=== PATIENT | female | born 1980 | race Asian ===

== ENCOUNTER 2018-03-02 15:48 | Observation (INO) | payer OTHER, BC ==
[~2018-03-02] VITALS: Ht 154.9 cm; Wt 58.0 kg
[2018-03-02] MEDS ORDERED: dicyclomine 10mg/ml 2ml ampule IM ONE (17:15)
[2018-03-02] MEDS ORDERED: normal saline 1000ML IV soln IVB ONE ×2 (17:15→19:20)
[2018-03-02] MEDS ORDERED: ondansetron/PF 4mg/2ml inj IV ONE ×2 (17:15→18:40)
[2018-03-02 17:47] LABS: BASOPHILS % (AUTO) 0 % (0-1); EOSINOPHILS % (AUTO) 0.3 % (0-6); HEMATOCRIT 42.3 % (35.0-45.0); HEMOGLOBIN 14.3 g/dl (12.0-16.0); LYMPHOCYTES # (AUTO) 0.4 X10'3 (1.1-4.8); LYMPHOCYTES % (AUTO) 5.8 % (21-51); MEAN CORPUSCULAR HGB CONC 33.9 % (33.0-36.5); MEAN CORPUSCULAR VOLUME 82.6 FL (78-98); MEAN PLATELET VOLUME 6.9 FL (7.4-10.4); MONOCYTES % (AUTO) 0.5 % (2-12); NEUTROPHILS # (AUTO) 6.6 X10'3 (1.8-7.7); NEUTROPHILS % (AUTO) 93.4 % (42-75); PLATELET COUNT 216 X10'3 (140-440); RED BLOOD COUNT 5.12 X10'6 (4.20-5.60); RED CELL DISTRIBUTION WIDTH 13.9 % (11.5-14.5); WHITE BLOOD COUNT 7.1 X10'3 (4.5-11.0)
[2018-03-02 17:48] LABS: CLARITY,URINE CLEAR (Clear); COLOR,URINE YELLOW (Yellow); GLUCOSE, URINE NEGATIVE (Neg); KETONES,URINE >=80 mg/dl (Neg); LEUKOCYTE ESTERASE ,URINE NEGATIVE (Neg); NITRITES, URINE NEGATIVE (Neg); OCCULT BLOOD,URINE LARGE (Neg); PH,URINE 5.5 (4.8-8.0); PROTEIN,URINE TRACE mg/dl (Neg); UROBILINOGEN,URINE 0.2 E.U/dL (0.2-1.0)
[2018-03-02 17:49] LABS: URINE HCG NEGATIVE (NEG)
[2018-03-02 17:55] LABS: UA COLLECTION TYPE CLN CATCH MIDSTREAM
[2018-03-02 17:56] LABS: BACTERIA,URINE NONE SEEN /HPF (Neg); MUCUS STRANDS FEW /LPF (Neg); RBC,URINE 20-50 /HPF (0-2); SQUAMOUS EPITHELIAL CELL,UR FEW /LPF (FEW); WBC,URINE 0-4 /HPF (0-4)
[2018-03-02 18:03] LABS: ALANINE AMINOTRANSFERASE 53 U/L (12-78); ALBUMIN 4.1 G/DL (3.4-5.0); ALBUMIN/GLOBULIN RATIO 0.9 (1.1-1.5); ALKALINE PHOSPHATASE 77 IU/L (46-116); ANION GAP 12 (8-16); ASPARTATE AMINO TRANSFERASE 44 U/L (10-37); BILIRUBIN,TOTAL 0.6 MG/DL (0.1-1.0); BLOOD UREA NITROGEN 18 MG/DL (7-18); BUN/CREATININE RATIO 22.8 (6.6-38.0); CALCIUM 8.1 MG/DL (8.5-10.1); CHLORIDE 102 MMOL/L (99-107); CREATININE 0.79 MG/DL (0.40-0.90); GLUCOSE 100 MG/DL (70-104); POTASSIUM 3.2 MMOL/L (3.5-5.1); SODIUM 138 MMOL/L (135-145); TOTAL CARBON DIOXIDE 24.2 MMOL/L (24-32); TOTAL PROTEIN 8.6 G/DL (6.4-8.2); eGFR 81 ML/MIN
[2018-03-02] MEDS ORDERED: acetaminophen 325mg tablet PO STA (18:40)
[2018-03-02] MEDS ORDERED: potassium Cl oral solution 20 MEQ/15 ML PO ONE (19:50)
[2018-03-02] MEDS ORDERED: ondansetron/PF 4mg/2ml inj IV PRN (20:15)
[2018-03-02] MEDS ORDERED: potassium Cl 40MEQ/NS 500ml 500 ML IV PRN ×2 (20:15)
[2018-03-02] MEDS ORDERED: mag hydrox/Alum hydrox/simeth 30ml oral suspension PO PRN (20:15)
[2018-03-02] MEDS ORDERED: magnesium hydroxide 30ml (MOM) UD suspension PO PRN (20:15)
[2018-03-02] MEDS ORDERED: acetaminophen 325mg tablet PO PRN (20:15)
[2018-03-02] MEDS ORDERED: potassium Cl 20 mEq SR tablet PO PRN (20:15)
[2018-03-02] MEDS: dextrose 5%-1/2 normal saline 1,000 ML IV SCH (21:24)
[2018-03-02 21:45] VITALS: BP 91/53
[2018-03-03] VITALS: BP 94/50
[2018-03-03 04:55] LABS: BASOPHILS % (AUTO) 0.2 % (0-1); EOSINOPHILS % (AUTO) 0.5 % (0-6); HEMATOCRIT 32.9 % (35.0-45.0); HEMOGLOBIN 11.2 g/dl (12.0-16.0); LYMPHOCYTES # (AUTO) 0.8 X10'3 (1.1-4.8); LYMPHOCYTES % (AUTO) 9.1 % (21-51); MEAN CORPUSCULAR HEMOGLOBIN 27.8 PG (27.0-31.0); MEAN CORPUSCULAR HGB CONC 34.2 % (33.0-36.5); MEAN CORPUSCULAR VOLUME 81.5 FL (78-98); MEAN PLATELET VOLUME 7.1 FL (7.4-10.4); MONOCYTES # (AUTO) 0.4 X10'3 (0-0.9); NEUTROPHILS # (AUTO) 7.5 X10'3 (1.8-7.7); NEUTROPHILS % (AUTO) 85.2 % (42-75); PLATELET COUNT 190 X10'3 (140-440); RED BLOOD COUNT 4.04 X10'6 (4.20-5.60); RED CELL DISTRIBUTION WIDTH 13.9 % (11.5-14.5); WHITE BLOOD COUNT 8.8 X10'3 (4.5-11.0)
[2018-03-03 05:09] LABS: ALBUMIN 2.8 G/DL (3.4-5.0); ANION GAP 11 (8-16); BLOOD UREA NITROGEN 8 MG/DL (7-18); BUN/CREATININE RATIO 12.1 (6.6-38.0); CALCIUM 7.8 MG/DL (8.5-10.1); CHLORIDE 108 MMOL/L (99-107); CREATININE 0.66 MG/DL (0.40-0.90); GLUCOSE 113 MG/DL (70-104); MAGNESIUM 1.9 MG/DL (1.5-2.4); POTASSIUM 3.4 MMOL/L (3.5-5.1); SODIUM 141 MMOL/L (135-145); TOTAL CARBON DIOXIDE 22.5 MMOL/L (24-32); eGFR > 90 ML/MIN
[2018-03-03] MEDS ORDERED: HYDROmorphone 1 mg/ml syringe IV ONE (05:45)
[2018-03-03] MEDS: potassium Cl 20 mEq SR tablet PO PRN ×3 (05:57→13:09)
[2018-03-03] MEDS: dextrose 5%-1/2 normal saline 1,000 ML IV SCH (05:57)
[2018-03-03] MEDS ORDERED: acetaminophen 325mg tablet PO PRN (06:05)
[2018-03-03] MEDS ORDERED: dicyclomine 10 MG capsule PO PRN (06:10)
[2018-03-03 07:00] VITALS: BP 99/55
[2018-03-03] MEDS ORDERED: NO HOME MEDS (08:39)
[2018-03-03 09:48] LABS: C DIFF ANTIGEN NEGATIVE (NEGATIVE); C DIFF SPECIMEN=DIARRHEA? ACCEPTABLE; C DIFFICILE TOXINS A&B NEGATIVE (Neg)
[2018-03-03 09:56] LABS: CRYPTOSPORIDIUM AG NEGATIVE (Neg); GIARDIA LAMBLIA AG NEGATIVE (Neg)
[2018-03-03] MEDS ORDERED: ONDA4TAB9 PO (10:52)
[2018-03-03 11:00] VITALS: BP 101/67
[2018-03-03 11:05] VITALS: BP 101/67
[2018-03-03 11:10] VITALS: BP 100/67
[2018-03-03] MEDS ORDERED: DICY10CA88 PO (15:03)
== END 2018-03-03 15:17 | disposition home or self-care (01) ==
LOC: ER 15:49 → ED HOLD 20:12 → SUR 3N 21:00
PROVIDERS: ADMIT Emergency Medicine; ATTEND Family Medicine
DX: K52.9 Noninfective gastroenteritis and colitis, unspecified (principal); E87.6 Hypokalemia; E86.0 Dehydration; N28.9 Disorder of kidney and ureter, unspecified
CPT/HCPCS: 36415; 71045; 80048; 80053; 81001; 81025; 83605; 83735; 84145; 85025; 87040; 87045; 87046; 87070; 87324; 87328; 87329; 87336; 87449; 93005; 96361; 96372; 96374; 96376; 99285; G0378; J0500; J1170; J2405; J7030